=== PATIENT | male | born 1955 | race Caucasian/White ===

== ENCOUNTER 2018-12-07 01:14 | Emergency (ER) | payer OTHER ==
[~2018-12-07] VITALS: Ht 172.7 cm; Wt 81.6 kg
[2018-12-07 01:23] VITALS: Ht 172.7 cm; Wt 81.6 kg
[2018-12-07 02:12] LABS: BASOPHIL % 0.4 % (0-2); PLATELET COUNT 147 x10^3mcL (130-400); RED CELL DISTRIBUTION WIDTH 13.1 % (11.5-14.5)
[2018-12-07 02:25] LABS: CALCIUM 7.9 mg/dL (8.5-10.1); CARBON DIOXIDE 23.8 mmol/L (21-32); CHLORIDE SERUM 97 mmol/L (98-107); CREATININE SERUM 1.3 mg/dL (0.7-1.3); GFR1 59 mL/min; GLUCOSE SERUM 202 mg/dL (74-106); POTASSIUM SERUM 3.3 mmol/L (3.5-5.1); SODIUM SERUM 131 mmol/L (136-145)
[2018-12-07 02:30] LABS: ALKALINE PHOSPHATASE 100 U/L (46-116); ALT/SGPT 22 U/L (16-63); AMYLASE 35 U/L (25-115); AST/SGOT 29 U/L (15-37); BILIRUBIN TOTAL 1.55 mg/dL (0.20-1.00); LIPASE 196 IU/L (73-393); TOTAL PROTEIN, SERUM 7.2 g/dL (6.4-8.2)
[2018-12-07 02:32] LABS: ALBUMIN 3.1 g/dL (3.4-5.0)
[2018-12-07 06:46] VITALS: BP 144/87
== END 2018-12-07 06:46 | disposition home or self-care (01) ==
LOC: ED 01:14
PROVIDERS: Emergency Medicine
DX: I16.1 Hypertensive emergency (principal); M16.0 Bilateral primary osteoarthritis of hip; E11.9 Type 2 diabetes mellitus without complications
CPT/HCPCS: 36415; 82962; G0480